=== PATIENT | male | born 1945 | race Caucasian/White ===

== ENCOUNTER → 2020-07-13 11:31 | Outpatient (BNVA) | payer MEDICARE, OTHER, SELFPAY | PROVIDERS: PCP Internal Medicine; Referring Provider Internal Medicine; Visit Provider Urology | DX: Z76.89 Persons encountering health services in other specified circumstances (principal) | CPT/HCPCS: Q3014 ==

== ENCOUNTER → 2021-08-01 09:12 | Outpatient (BNVA) | payer MEDICARE, OTHER, SELFPAY | PROVIDERS: PCP Internal Medicine; Visit Provider Urology | DX: Z13.89 Encounter for screening for other disorder (principal) | CPT/HCPCS: Q3014 ==

== ENCOUNTER → 2022-08-13 08:42 | Outpatient (BNVA) | payer MEDICARE, OTHER, SELFPAY | PROVIDERS: PCP Internal Medicine; Visit Provider Urology | DX: R97.20 Elevated prostate specific antigen [PSA] (principal) | CPT/HCPCS: 99212 ==

== ENCOUNTER 2023-06-12 09:18 | Outpatient (AMB) | payer MEDICARE, OTHER, SELFPAY ==
--- NOTE | 2023-06-12 09:31 | A.OFFVIS_ITS ---
Intake Intake Visit Reasons: 10M PSA(set) Intake Note: Patient is Present for Follow Up PSA Urology Medication: None Antibiotic Allergies: Levofloxacin Blood Thinners: Aspirin [facility]: [facility] Allergies levofloxacin [Levaquin] Allergy (Intermediate, Verified 06/12/23 09:34) tendon problem Bee's Allergy (Severe, Uncoded 06/12/23 09:34) Anaphylaxis HPI HPI Comments History of Present Illness Details Josesito is a pleasant male. He is seen for following urologic conditions. He is a patient of Dr. Bland - lower urinary tract symptoms - elevated PSA PSA staying in range for him - did improve when he held off work 48 h ours prior Discussed results JARED with 2+ bumpy prostate Continue with yearly follow-up Has PSA checked every 6 months with PCP Previously had trialed finasteride however has side effects with sore breasts Elevated PSA/Abnormal JARED: He presents for further evaluation of elevated PSA. Current management is observation. Laboratory investigations include 03/06 2.6 09/10 5.2, 03/10 9.5 10/12 4.8, 03/11 5.4 01/10 7.4 20% - 06/12 6.2 20%, 04/13 6.3 21%. 07/15 6.4 20% Individualized Prostate Cancer Risk Calculator >10% high risk, Discussion regarding TRUS biopsy performed. A TRUS biopsy has been performed and is negative 04/10 60 gm Overall symptoms are mild. Therapeutic plan will be continued surveillance [facility] Medical History HTN (hypertension) Family History Maternal Uncle Colon cancer Mother Colon cancer Social History Alcohol intake: former Patient Tobacco Use Status: Former Tobacco user Tobacco use type: Cigarette Cigarette Packs Per Day: 70 Cigarettes Per Day: 20 service: Yes Current occupational status: retired Review of Systems Const Denies chills and Denies fever(s) Card Reports no additional complaints and Denies syncope Resp Denies cough GI Denies abdominal pain and Denies heartburn Reports as per HPI and Denies change in libido Neuro Denies syncope Psych Denies change in libido Endo Denies change in libido Physical Exam Const General: cooperative, healthy appearing, comfortable and no acute distress Orientation/consciousness: patient oriented x3 HEENT Face and sinus: Yes normal facial exam Mouth: moist mucous membranes Neck Neck: Yes normal visual inspection, Yes full ROM and Yes trachea midline Chest Chest palpation & inspection: normal inspection of the chest Resp Effort & Inspection: normal respiratory effort, able to speak in complete sentences and no respiratory distress GI Inspection: Yes normal to inspection Back/Spine/Pelvis Cervical Spine: normal cervical lordosis Thoracic/Lumbar Spine: thoracic and lumbar spine normal to inspection Skin General skin exam: no rashes or lesions noted Neuro General: patient oriented x3, gait normal, tone normal and moves all extremities Extrem General: Yes normal to inspection and Yes capillary refill normal Assessment & Plan Assessment & Plan (1) Elevated PSA: Comment: Negative biopsy 2019 Code(s): R97.20 - Elevated prostate specific antigen [PSA] Plan Twelve month follow-up Patient Instructions: Imaging studies, laboratory and physical exam results were discussed and reviewed in detail. No major barriers to patient understanding were identified. An opportunity to ask questions regarding the treatment plan was provided. All questions were answered. The patient expressed understanding and agreement with the above treatment plan. The patient is aware they should contact our office by phone for worsening of their current condition or the appearance of new urologic symptoms. Compliance is encouraged with any medications and followup testing that is ordered. It is a privilege to participate in the urologic care of your patient. If you have any questions or concerns regarding treatment for the above conditions, or other urologic issues, please do not hesitate to contact me. The office telephone contact is [phone]. This note is constructed using voice recognition software. While every effort has been made to ensure accuracy director commercial sales errors may have been included. Yours sincerely, Dr Isaias Mariscal MD, [facility] - Urology Providers of Expert, Compassionate Care for the Genitourinary System Coding Level of Care Code Est Pt Level 4 (22779) Diagnoses Elevated PSA R97.20
== END 2023-06-12 10:16 | disposition home or self-care (01) ==
PROVIDERS: Visit Provider Urology
DX: R97.20 Elevated prostate specific antigen [PSA] (principal)
CPT/HCPCS: 99213

== ENCOUNTER → 2023-06-12 09:18 | Outpatient (BNVA) | payer MEDICARE, OTHER, SELFPAY | PROVIDERS: Visit Provider Urology | DX: R97.20 Elevated prostate specific antigen [PSA] (principal) | CPT/HCPCS: 99212 ==

== ENCOUNTER 2024-06-29 09:24 | Outpatient (AMB) | payer MEDICARE, OTHER, SELFPAY ==
--- NOTE | 2024-06-29 09:25 | A.OFFVIS_ITS ---
Intake Visit Reasons: 1Y PSA(set)Elevated Intake Note: Patient is Present for 1Y Follow Up PSA Urology Medication: None Antibiotic Allergies: Levofloxacin Blood Thinners: Aspirin Bridge Toll Collector Required: No Allergies levofloxacin [Levaquin] Allergy (Intermediate, Verified 06/29/24 09:26) tendon problem Bee's Allergy (Severe, Uncoded 06/29/24 09:26) Anaphylaxis HPI Comments Details: Josesito is a pleasant male. He is seen for following urologic conditions. He is a patient of Dr. Bland - lower urinary tract symptoms - elevated PSA Twelve month follow-up JARED with 2+ bumpy prostate Continue with yearly follow-up Previously had trialed finasteride however has side effects with sore breasts Discussed PSA result Plan for prostate MRI Prior negative biopsy Elevated PSA/Abnormal JARED: He presents for further evaluation of elevated PSA. Current management is observation. Laboratory investigations include 03/06 2.6 09/10 5.2, 03/10 9.5 10/12 4.8, 03/11 5.4 01/10 7.4 20% - 06/12 6.2 20%, 04/13 6.3 21%. 07/15 6.4 20%, 06/16 8.5 17% Individualized Prostate Cancer Risk Calculator >10% high risk, Discussion regarding TRUS biopsy performed. A TRUS biopsy has been performed and is negative 04/10 60 gm Overall symptoms are mild. Therapeutic plan will be continued surveillance [facility] Medical History HTN (hypertension) Family History Maternal Uncle Colon cancer Mother Colon cancer Social History Alcohol intake: former Patient Tobacco Use Status: Former Tobacco user Tobacco use type: Cigarette Cigarette Packs Per Day: 70 Cigarettes Per Day: 20 service: Yes Current occupational status: retired Review of Systems Const Denies chills and Denies fever(s) Card Reports no additional complaints and Denies syncope Resp Denies cough GI Denies abdominal pain and Denies heartburn Reports as per HPI and Denies change in libido Neuro Denies syncope Psych Denies change in libido Endo Denies change in libido Physical Exam Const General: cooperative, healthy appearing, comfortable and no acute distress Orientation/consciousness: patient oriented x3 HEENT Face and sinus: Yes normal facial exam Mouth: moist mucous membranes Neck Neck: Yes normal visual inspection, Yes full ROM and Yes trachea midline Chest Chest palpation & inspection: normal inspection of the chest Resp Effort & Inspection: normal respiratory effort, able to speak in complete sentences and no respiratory distress GI Inspection: Yes normal to inspection Back/Spine/Pelvis Cervical Spine: normal cervical lordosis Thoracic/Lumbar Spine: thoracic and lumbar spine normal to inspection Skin General skin exam: no rashes or lesions noted Neuro General: patient oriented x3, gait normal, tone normal and moves all extremities Extrem General: Yes normal to inspection and Yes capillary refill normal Assessment & Plan Assessment & Plan (1) Elevated PSA: Comment: Negative biopsy 2019 Code(s): R97.20 - Elevated prostate specific antigen [PSA] Category: Medical Plan Six-month follow-up MRI prostate Orders: Orders MR Prostate wo/w con 6 Months R97.20 - Elevated prostate specific antigen [PSA] Patient Instructions: Imaging studies, laboratory and physical exam results were discussed and reviewed in detail. No major barriers to patient understanding were identified. An opportunity to ask questions regarding the treatment plan was provided. All questions were answered. The patient expressed understanding and agreement with the above treatment plan. The patient is aware they should contact our office by phone for worsening of their current condition or the appearance of new urologic symptoms. Compliance is encouraged with any medications and followup testing that is ordered. It is a privilege to participate in the urologic care of your patient. If you have any questions or concerns regarding treatment for the above conditions, or other urologic issues, please do not hesitate to contact me. The office telephone contact is [phone]. This note is constructed using voice recognition software. While every effort has been made to ensure accuracy shearing supervisor errors may have been included. Yours sincerely, Dr Isaias Mariscal MD, [facility] - Urology Providers of Expert, Compassionate Care for the Genitourinary System Coding Level of Care Code Est Pt Level 4 (66442) Diagnoses Elevated PSA R97.20
== END 2024-06-29 09:54 | disposition home or self-care (01) ==
LOC: HO.HUSH 09:24
PROVIDERS: PCP Internal Medicine; Visit Provider Urology
DX: R97.20 Elevated prostate specific antigen [PSA] (principal)
CPT/HCPCS: 99214

== ENCOUNTER → 2024-06-29 09:24 | Outpatient (BNVA) | payer MEDICARE, OTHER, SELFPAY | PROVIDERS: PCP Internal Medicine; Visit Provider Urology | DX: R97.20 Elevated prostate specific antigen [PSA] (principal); N42.89 Other specified disorders of prostate | CPT/HCPCS: 99212 ==

== ENCOUNTER → 2024-10-25 08:46 | Outpatient (BNV) | payer MEDICARE, OTHER, SELFPAY | PROVIDERS: PCP Internal Medicine; Visit Provider Radiology Diagnostic Radiology | DX: R97.20 Elevated prostate specific antigen [PSA] (principal) | CPT/HCPCS: 72197 ==

== ENCOUNTER 2024-10-25 08:51 | Outpatient (REF) | payer MEDICARE, OTHER, SELFPAY ==
--- OUTSIDE RECORDS SUMMARY | 2024-10-25 09:42 | XMS_ITS | Clinical Summary ---
Author Organization [facility] Address [address] [place] [address] Care Team Providers Care Dispatch Machine Runner Name Role Phone Unavailable Primary Care Provider Unavailabl e Immunizations Name Administration Dates Next Due Covid-19 (Pfizer) Dilution Required 11/21/2020,0 10/19/2020 Social History Tobacco Use Types Packs/Day Years Used Date Smoking Tobacco: Never Assessed Sex and Gender Information Value Date Recorded Sex Assigned at Male 05/24/2020 8:29 AM EDT Gender Identity Not on file Sexual Orientation Not on file Plan of Treatment Health Maintenance Due Date Last Done Comments Hepatitis C Screening 1945 Depression Screening 1958 Preventative Health Evaluation 02/12/1964 DTap / Tdap / Td (1 - Tdap) 1965 Shingrix-Zoster Vaccine (1 o f 2) 02/12/1996 Fall Risk Assessment 2011 Pneumococcal Vaccine (1 of 1 - PCV) 2011 RSV Adult > 60+ Yrs or (1 - 1-dose 75+ series) 2021 COVID-19 Vaccine (3 - 2023-2 5 season) 2024 11/21/2020, 10/19/2020 Influenza Vaccine (#1) 2024 6, 05/18/2015 Hepatitis B Vaccines Aged Out No long er eligible based on patient's age to complete this topic RSV Ped < 20 months Aged Out No longe r eligible based on patient's age to complete this topic
--- OUTSIDE RECORDS SUMMARY | 2024-10-25 09:43 | XMS_ITS | Clinical Summary ---
Author Organization [facility] Address [address] [place] [address] Care Team Providers Care Glass Curvature Gauger Name Role Phone Naveen Gil Primary Care Provider Unavailabl e Allergies Active Allergy Reactions Criticality Noted Date Comments Levaquin 02/23/2017 Pneumococcal Vac Polyvalent 02/24/20 17 Medications Lisinopril (PRINIVIL,ZESTRIL) 30 MG tablet 0 02/23/2017 Active Active Problems Problem Noted Date Diagnosed Date SNHL (sensory-neural hearing loss), asymmetrical 05/09/2020 Retention cyst of tonsil 05/16/2019 Nasal vestibulitis 02/23/2017 Laryngopharyngeal reflux 02/23/2017 Rhinitis 02/23/2017 Family History Medical History Relation Name Comments Cancer (?Type) Other malignant cesia plasm : Other Other Other Former tobacco use : Other Relation Name Status Comments Other Social History Tobacco Use Types Packs/Day Years Used Date Smoking Tobacco: Never Assessed Comments:Smoking Status:Form er smoker Sex and Gender Information Value Date Recorded Sex Assigned at Not on file Legal Sex Male 9:01 PM EDT Gender Identity Not on file Sexual Orientation Not on file Plan of Treatment Health Maintenance Due Date Last Done Comments Hepatitis C Screening 1945 DTaP/Tdap/Td (1 - Tdap) 02/12/1964 Colon Cancer Screening 1991 Zoster (Shingrix) (1 of 2) 02/12/1996 RSV (1 - 1-dose 75+ series) 2021 COVID-19 Vaccine (2023-2 5 season) 2024 Influenza (#1) 2024 HPV Vaccine Aged Out No longer eligi ble based on patient's age to complete this topic Hep A Aged Out No longer eligi ble based on patient's age to complete this topic Hep B Aged Out No longer eligi ble based on patient's age to complete this topic Hib Aged Out No longer eligi ble based on patient's age to complete this topic Meningococcal ACWY Aged Out No longer eligible based on patient's age to complete this topic Zoster (Zostavax) Discontinued Care Teams Glass Curvature Gauger Relationship Specialty Start Date End Date Gil Hodge PCP - General 03/30/23
--- OUTSIDE RECORDS SUMMARY | 2024-10-25 09:43 | XMS_ITS | Clinical Summary ---
Author Organization [facility] Address [address] [place] [address] Care Team Providers Care Frozen Food Department Manager Name Role Phone Unavailable Primary Care Provider Unavailabl e Social History Tobacco Use Types Packs/Day Years Used Date Smoking Tobacco: Never Assessed Sex and Gender Information Value Date Recorded Sex Assigned at Not on file Gender Identity Not on file Sexual Orientation Not on file Plan of Treatment Health Maintenance Due Date Last Done Comments Hepatitis C Virus Screening 1945 DTaP/Tdap/Td Vaccines (1 - Tdap) 1965 Pneumococcal Vaccines 50+ (1 of 1 - PCV) 02/12/1996 Zoster (Shingles) Vaccine (1 of 2) 02/12/1996 RSV Vaccine 60 years and old er and Patients (1 - 1-dose 75+ series) 2021 COVID-19 Vaccine (2023-2 5 season) 2024 Hepatitis B Vaccines Aged Out No long er eligible based on patient's age to complete this topic
--- OUTSIDE RECORDS SUMMARY | 2024-10-25 09:43 | XMS_ITS | Clinical Summary ---
Author Organization [facility] Address [address] [place] [address] Care Team Providers Care Lead Manufacturing Technician Name Role Phone Unavailable Primary Care Provider Unavailabl e Surgical History Surgery Date Site/Laterality Comments HEMORRHOID SURGERY PROCEDURE: MN INCISION THROMBOSED HEMORRHOID EXTERNAL OTHER SURGICAL HISTORY PROCEDURE: LAPAROSCOPIC ORCHIECTOMY KNEE ARTHROSCOPY PROCEDURE: MN ARTHROSCOPY AID TX SPINE&/FX KNEE W/O FIXJ OTHER SURGICAL HISTORY PROCEDURE: ---- OTHER ----; COMMENT: polyp removal OTHER SURGICAL HISTORY PROCEDURE: COLONOSCOPY, SURGICAL Medical History Medical History Date Comments Diverticulitis DX:Diverticuliti s SCC (squamous cell carcinoma) DX :SCC (squamous cell carcinoma) Inguinal hernia DX:Inguinal derek ia Dysplastic nevus DX:Dysplastic n evus Family History Medical History Relation Name Comments Other: aneurysm Father Colon cancer Mother Other: myocardio infarction Sister Relation Name Status Comments Father Mother Sister Social History Tobacco Use Types Packs/Day Years Used Date Smoking Tobacco: Former Smokeless Tobacco: Never Alcohol Use Standard Drinks/Week Comments Yes 0 (1 standard drink = 0.6 oz pur e alcohol) Sex and Gender Information Value Date Recorded Sex Assigned at Not on file Legal Sex Male 12:05 AM EST Gender Identity Not on file Sexual Orientation Not on file Obstetrics History Plan of Treatment Health Maintenance Due Date Last Done Comments DTaP,Tdap,and Td Vaccines (1 - Tdap) 1965 Pneumococcal Vaccine: 50+ Years (1 of 1 - PCV) 02/12/1996 Zoster Vaccines (1 of 2) 02/12/1996 RSV Immunization Patients 60 + Years Old (1 - 1-dose 75+ series) 2021 COVID-19 Vaccine (3 - 2023-2 5 season) 2024 11/21/2020, 10/19/2020 Influenza Vaccine (#1) 2024 HIB Vaccines Aged Out No longer eligi ble based on patient's age to complete this topic HPV Vaccines Aged Out No longer eligi ble based on patient's age to complete this topic Hepatitis A Vaccines Aged Out No long er eligible based on patient's age to complete this topic Hepatitis B Vaccines Aged Out No long er eligible based on patient's age to complete this topic IPV Vaccines Aged Out No longer eligi ble based on patient's age to complete this topic MMR Vaccines Aged Out No longer eligi ble based on patient's age to complete this topic Meningococcal ACWY Vaccine Aged Out N o longer eligible based on patient's age to complete this topic Meningococcal B Vacine Aged Out No lo nger eligible based on patient's age to complete this topic RSV Immunization Patients Under 20 months Aged Out No longer eligible b ased on patient's age to complete this topic Varicella Vaccines Aged Out No longer eligible based on patient's age to complete this topic
[2024-10-25] MEDS: gadobutroL 10 ML VIAL IVPUSH (10:40)
== END 2024-10-25 08:52 | disposition home or self-care (01) ==
LOC: HO.MRI 08:51
PROVIDERS: PCP Internal Medicine; Visit Provider Urology
DX: R97.20 Elevated prostate specific antigen [PSA] (principal)
CPT/HCPCS: 72197; A9585

== ENCOUNTER 2025-01-12 11:25 | Outpatient (AMB) | payer MEDICARE, OTHER, SELFPAY ==
--- NOTE | 2025-01-12 11:32 | A.OFFVIS_ITS ---
Intake Visit Reasons: 6M MRI/PSA(12/21)Elevated PSA Intake Note: Patient is present for 6M/MRI/PSA Urology Medication:NONE Antibiotic Allergy:LEVOFLOXACIN Blood Thinner:ASPIRIN Meteorological Equipment Repairer Required: No Allergies levofloxacin [Levaquin] Allergy (Intermediate, Verified 01/12/25 11:33) tendon problem Bee's Allergy (Severe, Uncoded 01/12/25 11:33) Anaphylaxis HPI Comments Details: Josesito is a pleasant male. He is seen for following urologic conditions. He is a patient of Dr. Bland - lower urinary tract symptoms - elevated PSA Twelve month follow-up Previously had trialed finasteride however has side effects with sore breasts 11/15 prostate MRI 125 g gland, no discrete nodule seen Discussed results Current PSA driven by large prostate Elevated PSA/Abnormal JARED: He presents for further evaluation of elevated PSA. Current management is observation. Laboratory investigations include 03/06 2.6 09/10 5.2, 03/10 9.5 10/12 4.8, 03/11 5.4 01/10 7.4 20% - 06/12 6.2 20%, 04/13 6.3 21%. 07/15 6.4 20%, 06/16 8.5 17%, 12/16 PSA 10.9, 16% Individualized Prostate Cancer Risk Calculator >10% high risk, Discussion regarding TRUS biopsy performed. A TRUS biopsy has been performed and is negative 04/10 60 gm Overall symptoms are mild. Therapeutic plan will be continued surveillance [facility] Medical History HTN (hypertension) Family History Maternal Uncle Colon cancer Mother Colon cancer Social History Alcohol intake: former Patient Tobacco Use Status: Former Tobacco user Tobacco use type: Cigarette Cigarette Packs Per Day: 70 Cigarettes Per Day: 20 service: Yes Current occupational status: retired Review of Systems Const Denies chills and Denies fever(s) Card Reports no additional complaints and Denies syncope Resp Denies cough GI Denies abdominal pain and Denies heartburn Reports as per HPI and Denies change in libido Neuro Denies syncope Psych Denies change in libido Endo Denies change in libido Physical Exam Const General: cooperative, healthy appearing, comfortable and no acute distress Orientation/consciousness: patient oriented x3 HEENT Face and sinus: Yes normal facial exam Mouth: moist mucous membranes Neck Neck: Yes normal visual inspection, Yes full ROM and Yes trachea midline Chest Chest palpation & inspection: normal inspection of the chest Resp Effort & Inspection: normal respiratory effort, able to speak in complete sentences and no respiratory distress GI Inspection: Yes normal to inspection Back/Spine/Pelvis Cervical Spine: normal cervical lordosis Thoracic/Lumbar Spine: thoracic and lumbar spine normal to inspection Skin General skin exam: no rashes or lesions noted Neuro General: patient oriented x3, gait normal, tone normal and moves all extremities Extrem General: Yes normal to inspection and Yes capillary refill normal Assessment & Plan Assessment & Plan (1) Elevated PSA: Comment: Negative biopsy 2018 Code(s): R97.20 - Elevated prostate specific antigen [PSA] Category: Medical (2) BPH loc w urin obs/LUTS: Code(s): N40.1 - Benign prostatic hyperplasia with lower urinary tract symptoms Category: Medical Plan Continue 12 month follow-up PSA Orders: Orders PSA,Total (Free>4and<10) 12 Months R97.20 - Elevated prostate specific antigen [PSA] Patient Instructions: This note is constructed using voice recognition software. While every effort has been made to ensure accuracy supervisor cutting department errors may have been included. Imaging studies, laboratory and physical exam results were discussed and reviewed in detail. No major barriers to patient understanding were identified. An opportunity to ask questions regarding the treatment plan was provided. All questions were answered. The patient expressed understanding and agreement with the above treatment plan. The patient is aware they should contact our office by phone for worsening of their current condition or the appearance of new urologic symptoms. Compliance is encouraged with any medications and followup testing that is ordered. It is a privilege to participate in the urologic care of your patient. If you have any questions or concerns regarding treatment for the above conditions, or other urologic issues, please do not hesitate to contact me. The office telephone contact is [phone]. Sincerely, Dr Isaias Mariscal MD, [facility] - Urology Compassionate Specialist Care for the Genitourinary System Coding Level of Care Code Est Pt Level 3 (17367) Complex EM visit Add On G2211 Diagnoses Elevated PSA R97.20 BPH loc w urin obs/LUTS N40.1
--- OUTSIDE RECORDS SUMMARY | 2025-01-12 12:02 | XMS_ITS | Clinical Summary ---
Author Organization [facility] Address [address] [place] [address] Care Team Providers Care Labor Delivery Rn Name Role Phone Unavailable Primary Care Provider [...]
--- OUTSIDE RECORDS SUMMARY | 2025-01-12 12:02 | XMS_ITS | Clinical Summary ---
Author Organization [facility] Address [address] [place] [address] Care Team Providers Care Press Setter Name Role Phone Kennedy Gil Primary Care Provider Unavailabl e Allergies [...] this topic Zoster (Zostavax) Discontinued Care Teams Press Setter Relationship Specialty Start Date End Date Gil Hodge PCP - General 03/30/23
--- OUTSIDE RECORDS SUMMARY | 2025-01-12 12:02 | XMS_ITS | Clinical Summary ---
Author Organization [facility] Address [address] [place] [address] Care Team Providers Care Red Lead Burner Name Role Phone Unavailable Primary Care Provider Unavailabl e Social History Tobacco Use Types Packs/Day Years Used Date Smoking Tobacco: Never Assessed Sex and Gender Information Value Date Recorded Sex Assigned at Not on file Legal Sex Male 12:36 PM EDT Gender Identity Not on file [...]
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
== END 2025-01-12 12:25 | disposition home or self-care (01) ==
LOC: HO.HUSH 11:25
PROVIDERS: PCP Internal Medicine; Visit Provider Urology
DX: R97.20 Elevated prostate specific antigen [PSA] (principal); N40.1 Benign prostatic hyperplasia with lower urinary tract symptoms
CPT/HCPCS: 99213; G2211

== ENCOUNTER → 2025-01-12 11:25 | Outpatient (BNVA) | payer MEDICARE, OTHER, SELFPAY | PROVIDERS: PCP Internal Medicine; Visit Provider Urology | DX: R97.20 Elevated prostate specific antigen [PSA] (principal); N40.1 Benign prostatic hyperplasia with lower urinary tract symptoms | CPT/HCPCS: 99212 ==